=== PATIENT | male | born 1950 | race Caucasian/White ===

== ENCOUNTER → 2023-12-02 | Outpatient (CLI) | payer MEDICARE, OTHER ==
[~2023-12-02] MED LIST: ATRIPLA PO; Albuterol 0.083% Neb Soln 2.5 MG/3 ML UD IH ONE; BIKTARVY 50-201 EACH PO; CEPHALEXIN500 M1 PO; IMODIUM 2MG CAPS2 MG PO; MOTRIN 600600 MG/TAB PO; PERCOCET 325 MG1 TA2 PO
== END ==
LOC: COL.CARD 09:36
DX: R06.09 Other forms of dyspnea (principal); R42 Dizziness and giddiness; Z87.891 Personal history of nicotine dependence

== ENCOUNTER 2023-12-14 09:04 | Day surgery (SDC) | payer MEDICARE, OTHER ==
[~2023-12-14] VITALS: Ht 177.8 cm; Wt 81.0 kg
[2023-12-14] VITALS (9 sets, daily range): BP systolic 90–149; BP diastolic 61–76; PULSE 17–52; TEMP 97.1
[~2023-12-14 09:04] MED LIST changes: -Albuterol 0.083% Neb Soln 2.5 MG/3 ML UD IH ONE
[2023-12-14] MEDS ORDERED: 1/2 NS 1,000 ML IV SCH (10:00)
[2023-12-14 10:02] LABS: INR 1.1 (0.8-3.0); PROTHROMBIN TIME 11.8 SECONDS (9.7-12.8)
[2023-12-14 10:03] LABS: HEMATOCRIT 41.3 % (42.0-52.0); HEMOGLOBIN 14.3 g/dl (13.5-18.0); MEAN CELL VOLUME 103 fl (80.0-100.0); MEAN CORPUSCULAR HEMOGLOBIN 36 pg (27-31); MEAN CORPUSCULAR HGB CONC 35 g/dl (33.0-37.0); MEAN PLATELET VOLUME 9.4 fl (7.4-10.4); PLATELET COUNT 160 K/mm3 (130-400); RED BLOOD COUNT 4.01 M/mm3 (4.20-5.60); REDCELL DISTRIBUTION WIDTH-CV 12.1 % (11.5-14.5)
[2023-12-14 10:05] LABS: PARTIAL THROMBOPLASTIN TIME 29.5 SECONDS (26.0-37.0)
[2023-12-14 10:16] LABS: CALCIUM 9.7 mg/dL (8.4-10.2); CREATININE, serum 1.44 mg/dL (0.72-1.25); POTASSIUM 4.1 mmol/L (3.5-4.5)
--- NOTE | 2023-12-14 11:27 | NUR ---
See merge for all medication, assessment, intervention, and vital sign times.
[2023-12-14] MEDS ORDERED: Heparin 1,000 UNITS/ML 10 ML Multi-Dose VIAL IV SCH (12:08)
[2023-12-14] MEDS ORDERED: Heparin 1,000 UNITS/ML 10 ML Multi-Dose VIAL IA SCH (12:09)
[2023-12-14] MEDS ORDERED: fentaNYL 50 MCG/ML 2 ML VIAL IV SCH (12:09)
[2023-12-14] MEDS ORDERED: Midazolam 2 MG/2 ML VIAL IV SCH (12:10)
[2023-12-14] MEDS ORDERED: Nitroglycerin 100 MCG/ML (Cath Lab) 10 ML VIAL IA SCH (12:11)
[2023-12-14] MEDS ORDERED: Verapamil 2.5 MG/ML 2 ML VIAL IA SCH (12:12)
[2023-12-14] MEDS ORDERED: Iohexol 350 - 100 ML VIAL INCOR ONE (12:14)
--- NOTE | 2023-12-14 12:45 | NUR ---
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 Pt drowsy, wakes easily to verbal stimuli and answers questions appropriatley. Pt free of complaints. Rt radial puncture site is clean, forearm soft to palpation. Rt groin venous access site dressing is clean, dry and intact. Area is soft to palpation. Pt aware he should be resting both rt extermities. Call light in reach. Pt takes sips of water, no issues swallowing. Pt's cell phone placed within reach as well.
--- NOTE | 2023-12-14 12:47 | NUR ---
Bedside report completed with Rashaun ALEJANDRE. First 2 sets of vitals reviewed. Right radial and right groin site reviewed. Call light within reach, fluids at 100 ml/hr. Rashaun ALEJANDRE denies questions/concerns at this time.
--- NOTE | 2023-12-14 13:30 | NUR ---
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 HOB remained at 0 degree angle. Due to hypotension, bed is lowered. Pt remains drowsy but overall more alert since returning to [place]. He is free of complaints. Rt venous groin access site remains soft to palpation and dressing is clean, dry and intact. Meal tray has been ordred.
--- NOTE | 2023-12-14 14:45 | NUR ---
RIGHT GROIN SITE REMAINS THE SAME, CLEAN AND DRY. STARTED RELEASE OF RADIAL BAND 2CC AT A TIME OVER 20 MIN BANDAID OVER SITE WITH COBAN FOR SUPPPORT, NO SWELLING OR OOZING. ALSO PT STOOD AT BEDSIDE, TOLERATED WELL GROIN SITE REMAINS THE SAME.
--- NOTE | 2023-12-14 15:15 | NUR ---
PT SITS ON SIDE OF BED, REVIEWED DISCHARGE INST. WITH PT ON CARE OF BOTH SITES, PRECAUTIONS AND FOLLOWUP APPT WITH VERBAL UNDERSTANDING. IV D'CD INTACT, PT UP IN ROOM DRESSED, DISCHARGED AT 1530 VIA W/C WITH GENERAL ACCOUNTING MANAGER
== END 2023-12-14 15:30 | disposition home or self-care (01) ==
LOC: COL.CAR 09:04
PROVIDERS: Internal Medicine Cardiovascular Disease
DX: R00.1 Bradycardia, unspecified (principal); R42 Dizziness and giddiness; I34.0 Nonrheumatic mitral (valve) insufficiency; I77.819 Aortic ectasia, unspecified site; Z95.818 Presence of other cardiac implants and grafts
CPT/HCPCS: C1894; J1644; J2250; J3010; Q9967

== ENCOUNTER → 2024-05-30 | Outpatient (CLI) | payer MEDICARE, OTHER | LOC: COL.CARD 08:30 | DX: R06.09 Other forms of dyspnea (principal); I95.89 Other hypotension; R42 Dizziness and giddiness ==